=== PATIENT | female | born 1960 ===

== ENCOUNTER 2018-04-03 15:23 | Emergency (ER) | payer MEDICAID ==
[2018-04-03 15:42] VITALS: BP 181/98
[2018-04-03] MEDS ORDERED: Ibuprofen TAB* 600 MG PO ONE (15:56)
--- NOTE | 2018-04-03 16:35 | RAD ---
HISTORY: Right ankle injury COMPARISONS: None VIEWS: 5, Frontal, lateral, and oblique views of the right ankle with frontal and lateral views of the right foreleg FINDINGS: BONE DENSITY: Normal. BONES: The patient is status post internal fixation of the distal tibia. There is associated remote post right changes of the distal tibia and fibula. There is no hardware failure or osteolysis. There is no acute displaced fracture. 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 SOFT TISSUES: There is circumferential soft tissue swelling. OTHER FINDINGS: None. IMPRESSION: 1. POSTSURGICAL AND REMOTE POSTTRAUMATIC CHANGES. 2. OSTEOARTHRITIS. 3. NO ACUTE OSSEOUS INJURY. IF SYMPTOMS PERSIST, RECOMMEND REPEAT IMAGING
--- NOTE | 2018-04-03 17:04 | UC ---
Lower Extremity/Ankle HPI <Lyndon Jesus - Last Filed: 04/03/18 22:21> - HPI Summary HPI Summary: tripped and feel at home hurt right foot and ankle---is concerened because she has a plate and screws from an old injury in the lower leg - History of Current Complaint Hx Obtained From: Patient Hx Last Menstrual Period: menopause ?: No Onset/Duration: Sudden Onset Severity Initially: Moderate Severity Currently: Moderate Pain Intensity: 5 Pain Scale Used: 0-10 Numeric Aggravating Factor(s): Standing, Ambulation Alleviating Factor(s): Rest, Elevation Able to Bear Weight: Yes - with pain <Meme Marroquin - Last Filed: 04/16/18 21:43> - History of Current Complaint Chief Complaint: UCLowerExtremity Stated Complaint: leg injury Time Seen by Provider: 04/03/18 15:38 - Allergies/Home Medications Allergies/Adverse Reactions: Allergies Allergy/AdvReac Type Severity Reaction Status Date / Time MS Aspirin [Aspirin] Allergy Intermediate Swelling Verified 05/08/16 20:04 Of Face,Lips,& Throat pistachio nut Allergy Hives Verified 04/03/18 15:43 salmon oil Allergy Hives Verified 04/03/18 15:43 medicine used for stress test AdvReac Severe Numbness Uncoded 11/12/13 22:58 And Tingling Home Medications: Home Medications Cholecalciferol (Vitamin D3) [Vitamin D3] 04/03/18 [History] PMH/Surg Hx/FS Hx/Imm Hx Previously Healthy: No Endocrine History: Hypothyroidism - Surgical History Surgical History: Yes Surgery Procedure, Year, and Place: metal in R Leg, appendectomy, , oopherectomy, ablation, thyroidectomy - Family History Known Family History: Positive: Unknown - Social History Occupation: Unemployed Lives: With Family Alcohol Use: None Substance Use Type: None Smoking Status (MU): Never Smoked Tobacco - Immunization History Most Recent Influenza Vaccination: n/a Most Recent Tetanus Shot: unk Most Recent Pneumonia Vaccination: ,10 yrs <Meme Marroquin - Last Filed: 04/16/18 21:43> Review of Systems Constitutional: Negative Skin: Negative Eyes: Negative ENT: Negative Respiratory: Negative Cardiovascular: Negative Gastrointestinal: Negative Genitourinary: Negative Motor: Negative Neurovascular: Negative Musculoskeletal: Arthralgia - right ankle and lower leg Neurological: Negative Psychological: Negative Is Patient Immunocompromised?: No All Other Systems Reviewed And Are Negative: Yes <Meme Marroquin - Last Filed: 04/16/18 21:43> Physical Exam Vital Signs: Initial Vital Signs Temp 98.5 F 04/03/18 15:35 Pulse 89 04/03/18 15:35 Resp 16 04/03/18 15:35 BP 181/98 04/03/18 15:35 Pulse Ox 97 04/03/18 15:35 <Lyndon Jesus - Last Filed: 04/03/18 22:21> Triage Information Reviewed: Yes Appearance: Well-Appearing, Well-Nourished, Pain Distress - mild Vital Signs: Initial Vital Signs Temp 98.5 F 04/03/18 15:35 Pulse 89 04/03/18 15:35 Resp 16 04/03/18 15:35 BP 181/98 04/03/18 15:35 Pulse Ox 97 04/03/18 15:35 Vital Signs Reviewed: Yes Eye Exam: Normal Eyes: Positive: Conjunctiva Clear ENT Exam: Normal ENT: Positive: Normal ENT inspection, Hearing grossly normal. Negative: Trismus , Muffled voice, Hoarse voice Dental Exam: Normal Neck exam: Normal Neck: Positive: Supple, Nontender Respiratory Exam: Normal Respiratory: Positive: Chest non-tender, No respiratory distress, No accessory muscle use Cardiovascular Exam: Normal Cardiovascular: Positive: RRR, Pulses Normal, Brisk Capillary Refill Musculoskeletal Exam: Other Musculoskeletal: Positive: Strength Limited @ - right ankle, Edema @ - right lateral ankle Neurological Exam: Normal Neurological: Positive: Alert, Fatigued Psychological Exam: Normal Skin Exam: Normal <Meme Marroquin - Last Filed: 04/16/18 21:43> Diagnostics - Radiology No standard instances Xray Interpretation: No Acute Changes Radiology Interpretation Completed By: Radiologist <Meme Marroquin - Last Filed: 04/16/18 21:43> Lower Extremity Course/Dx - Course Course Of Treatment: pain med, rice, gel splint adrian wrap, walker follow with ortho prn - Differential Dx/Diagnosis Provider Diagnoses: right ankle sprain <Meme Marroquin - Last Filed: 04/16/18 21:43> Discharge - Billing Disposition and Condition Condition: STABLE Disposition: HOME <Lyndon Jesus - Last Filed: 04/03/18 22:21> - Sign-Out/Discharge Documenting (check all that apply): Discharge/Admit/Transfer - Billing Disposition and Condition Condition: STABLE Disposition: HOME <Meme Marroquin - Last Filed: 04/16/18 21:43> - Discharge Plan Condition: Stable Disposition: HOME Prescriptions: Ibuprofen TAB* [Motrin TAB* 600 MG] 600 mg PO Q6H PRN #30 tab PRN Reason: Pain - Mild traMADol TAB* [Ultram*] 50 mg PO Q6HR PRN #12 tab MDD 4 PRN Reason: pain Patient Education Materials: Foot Contusion (ED), Hypertension (ED), R.I.C.E. Treatment (ED) Referrals: Mert Siddiqui MD [Primary Care Provider] - 1 Week Eduard Schneider MD [Medical Doctor] -
== END 2018-04-03 17:30 | disposition home or self-care (01) ==
LOC: UCEAST 15:23
DX: S93.401A Sprain of unspecified ligament of right ankle, initial encounter (principal); W01.0XXA Fall on same level from slipping, tripping and stumbling without subsequent striking against object, initial encounter; Y93.9 Activity, unspecified; Y92.009 Unspecified place in unspecified non-institutional (private) residence as the place of occurrence of the external cause; M19.071 Primary osteoarthritis, right ankle and foot; R53.83 Other fatigue; E03.9 Hypothyroidism, unspecified; Z88.6 Allergy status to analgesic agent
CPT/HCPCS: 99213; A9270-GY; G0463